=== PATIENT | male | born 1955 | race Caucasian/White ===

== ENCOUNTER 2016-11-08 10:45 | Emergency (ER) | payer OTHER ==
[~2016-11-08] VITALS: Ht 170.2 cm; Wt 64.0 kg
[2016-11-08 10:47] VITALS: Ht 170.2 cm; Wt 64.0 kg
[2016-11-08] MEDS ORDERED: IBUPROFEN 800 MG TAB PO ONE (11:30)
--- NOTE | 2016-11-08 11:37 | ERD ---
ER Documentation Chief Complaint Date/Time DATE: 11/08/16 TIME: 11:33 Chief Complaint left arm swelling/cellulitis HPI This 61-year-old male who presents to the emergency department today with his complaining of some left arm swelling. 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 Both he and his communicate with writing and sign language. 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 Patient placed ice pack on his arm today and suddenly had swelling and burning and pain after applying the ice pack. Denies any fevers or chills. Denies any significant trauma. ROS All systems reviewed and are negative except as per history of present illness. Medications Home Meds Active Scripts Silver Sulfadiazine (THERMAZENE 1% 25 GM) 1 Applic Cr, 1 APPLIC TOP BID, #1 TUB Prov:TAHIR GUIDO PA-C 11/08/16 Acetaminophen* (Tylophen*) 500 Mg Capsule, 1 CAP PO Q6H Y for PAIN AND OR ELEVATED TEMP, #30 CAP Prov:TAHIR GUIDO PA-C 11/08/16 Ibuprofen* (Motrin*) 600 Mg Tab, 600 MG PO Q6, #30 TAB Prov:TAHIR GUIDO PA-C 11/08/16 PMhx/Soc Medical and Surgical Hx: pt denies Medical Hx, pt denies Surgical Hx Hx Alcohol Use: No Hx Substance Use: No Hx Tobacco Use: No Physical Exam Vitals Vital Signs Date Time Temp Pulse Resp B/P Pulse Ox O2 Delivery O2 Flow Rate FiO2 11/08/16 10:47 97.8 64 16 132/64 97 Physical Exam Const: No acute distress Head: Atraumatic Eyes: Normal Conjunctiva ENT: Normal External Ears, Nose and Mouth. Neck: Full range of motion..~ No meningismus. Resp: Clear to auscultation bilaterally Cardio: Regular rate and rhythm, no murmurs Skin: Localized swelling and erythema over antecubital fossa and volar aspect of forearm where ice was placed. MSK: Full active range of motion at elbow. Mild tenderness palpation. Pulses 2+. Distal neurovascularly intact Back: No midline or flank tenderness Ext: No cyanosis, or edema Neur: Awake and alert Psych: Normal Mood and Affect Results 24 hrs Current Medications Medications (Trade) Dose Ordered Sig/[place] Route PRN Reason Start Time Stop Time Status Last Admin Dose Admin Ibuprofen (Motrin) 800 mg ONCE ONCE PO 11/08/16 11:30 11/08/16 11:31 DC 11/08/16 11:47 DIAGNOSTIC IMAGING REPORT Patient: JALEESA HERRERA III : 1955 Age: 61 Sex: M MR #: [id number] DOS: 11/08/16 0000 Ordering MD: TAHIR GUIDO PA-C Location: [facility] Room/Bed: PROCEDURE: Ultrasound of the soft tissues of the right and left forearm. CLINICAL INDICATION: Erythema of the right and left forearm. TECHNIQUE: High-resolution sonography of the right and left forearm at the site of the erythema was performed in the axial and sagittal planes. COMPARISON: None FINDINGS: There is no fluid collection or mass. There is subcutaneous soft tissue edema in both forearms. There is no other abnormality at the site of the erythema. IMPRESSION: 1. Subcutaneous soft tissue edema in both forearms. No fluid collection or mass. 2. Any further management regarding the erythematous lesions should be based on clinical grounds. RPTAT: QQ .John Zamora MD, MD Date Time Electronically viewed and signed by .John Zamora MD, on 11/08/2016 12:31 .R/ CC: TAHIR GUIDO PA-C Procedures/[facility] This 61-year-old male who presents the emergency department today complaining of some swelling and redness after applying an ice pack to the left forearm for his pain that he was having in his elbow. Patient did have a significant amount of erythema and swelling and I did have the patient evaluated by Dr. Cruz recommended a soft tissue ultrasound. Ultrasound shows subcutaneous soft tissue edema on both forearms. There is no fluid collection or mass. There is no other abnormality at the site of erythema. Patient symptoms at this time most consistent with burn and frostbite and reaction secondary to ice pack application that was made of chemicals. Patient is afebrile and otherwise well-appearing. Low suspicion for cellulitis, sepsis , deep space infection. I do not feel the patient requires images of his elbow as there is been no significant trauma and have low suspicion for acute fracture dislocation. Patient was given Motrin for pain. She was given a prescription for Tylenol and Motrin for home. He is also given a prescription for Silvadene cream. He was also given information about the [facility] burn center. She was instructed not to apply ice at this time. Patient was also given a work note for a couple of days. At this time the patient is stable for discharge and outpatient management. Patient should follow up with their PCP in the next 1-2 days. They may return to the emergency department sooner for any persistent or worsening of symptoms. Patient and understood and agreed with the plan. Discussed the patient with Dr. Cruz and he is in agreement with the plan. Departure Diagnosis: Primary Impression: Burn Condition: Fair TAHIR GUIDO PA-C November 08, 2016 11:36
--- NOTE | 2016-11-08 12:31 | RADRPT ---
PROCEDURE: Ultrasound of the soft tissues of the right and left forearm. CLINICAL INDICATION: Erythema of the right and left forearm. TECHNIQUE: High-resolution sonography of the right and left forearm at the site of the erythema wa s performed in the axial and sagittal planes. COMPARISON: None FINDINGS: There is no fluid collection or mass. There is subcutaneous soft tissue edema in both forearms. There is no other abnormality at the site of the erythema. IMPRESSION: 1. Subcutaneous soft tissue edema in both forearms. No fluid collection or mass. 2. Any further management regarding the erythematous lesions should be based on clinical grounds. RPTAT: QQ .John Zamora MD, MD Date Time Electronically viewed and signed by .John Zamora MD, on 11/08/2016 12:31 .R/
[2016-11-08] MEDS ORDERED: SSD1C20 TOP (13:01)
[2016-11-08] MEDS ORDERED: IBUP-1542 PO (13:01)
[2016-11-08] MEDS ORDERED: ACET500C5 PO (13:01)
== END 2016-11-08 13:18 | disposition home or self-care (01) ==
LOC: FTE 10:45
DX: T22.112A Burn of first degree of left forearm, initial encounter (principal); X58.XXXA Exposure to other specified factors, initial encounter; Y92.9 Unspecified place or not applicable
CPT/HCPCS: 76536